=== PATIENT | male | born 1980 | race African-American/Black ===

== ENCOUNTER 2018-12-17 02:27 | Emergency (ER) | payer MEDICAID ==
[~2018-12-17] VITALS: Ht 190.5 cm; Wt 136.0 kg
[~2018-12-17 02:27] MED LIST: HYDR-3511
[2018-12-17] MEDS ORDERED: TETANUS, DIPHTHERIA, PERTUSSIS VAC/PF 0.5ML (>7YR OLD) IM ONE (04:15)
[2018-12-17 04:28] VITALS: BP 164/100
== END 2018-12-17 04:36 | disposition home or self-care (01) ==
LOC: ER 02:27
DX: S90.852A Superficial foreign body, left foot, initial encounter (principal); I10 Essential (primary) hypertension; W45.0XXA Nail entering through skin, initial encounter; Y93.89 Activity, other specified; Y92.89 Other specified places as the place of occurrence of the external cause; Y99.8 Other external cause status; Z88.0 Allergy status to penicillin; Z88.1 Allergy status to other antibiotic agents
CPT/HCPCS: 73620; 90471; 90715; 99284; Z7610; 99283

== ENCOUNTER 2019-03-24 20:07 | Emergency (ER) | payer MEDICAID ==
[~2019-03-24] VITALS: Ht 188 cm; Wt 132.3 kg
[~2019-03-24 20:07] MED LIST changes: -HYDR-3511; +HYDR-3512
[2019-03-24] MEDS ORDERED: SODIUM CHLORIDE 0.9% 1,000 ML IV ONE (23:53)
[2019-03-25 00:11] LABS: BASOPHILS % 0.8 % (0.0-2.0); EOSINOPHILS % 0.9 % (0.0-5.0); HEMATOCRIT. 42.7 % (42.0-52.0); HEMOGLOBIN. 14.1 g/dL (14.0-18.0); LYMPHOCYTES % 21.4 % (20.0-50.0); MEAN CORPUSCULAR HEMOGLOBIN 30.2 pg (28.0-32.0); MEAN CORPUSCULAR VOLUME 91.3 fL (80.0-94.0); MEAN PLATELET VOLUME 8.9 fl (7.4-10.4); MONOCYTES % 10.6 % (2.0-8.0); NEUTROPHILS % 66.3 % (40.0-76.0); PLATELET 236 x1000/uL (130-400); RED BLOOD CELL COUNT 4.68 mill/uL (4.7-6.1); RED CELL DISTRIBUTION WIDTH 12.9 % (11.6-14.6)
[2019-03-25 00:16] LABS: CHLORIDE 108 mEq/L (98-107)
[2019-03-25 00:17] LABS: PROTHROMBIN TIME 10.5 sec (9.6-11.0)
[2019-03-25] MEDS ORDERED: IOHEXOL-300 100 ML BOTTLE ONE (03:31)
[2019-03-25 04:53] VITALS: BP 147/83
== END 2019-03-25 04:53 | disposition home or self-care (01) ==
LOC: ER 20:07
DX: K62.89 Other specified diseases of anus and rectum (principal); R10.9 Unspecified abdominal pain; I10 Essential (primary) hypertension; Z88.0 Allergy status to penicillin; Z88.1 Allergy status to other antibiotic agents; Z98.890 Other specified postprocedural states
CPT/HCPCS: 36415; 74177; 80053; 83605; 83690; 85025; 85610; 99284; J7030; Q9967; Z7610

== ENCOUNTER 2022-05-05 16:18 | Emergency (ER) | payer MEDICARE, MEDICAID ==
[~2022-05-05] VITALS: Ht 182.9 cm; Wt 115.0 kg
[2022-05-05] MEDS ORDERED: IBUP-2030 MT (18:07)
[2022-05-05] MEDS ORDERED: HYDR-4001 MT (18:07)
[2022-05-05] MEDS ORDERED: HYDROCODONE/ACETAMINOPHEN 5/325MG TABLET PO ONE (18:15)
[2022-05-05 18:29] VITALS: BP 159/108
== END 2022-05-05 20:07 | disposition home or self-care (01) ==
LOC: ER 16:18
DX: S86.012A Strain of left Achilles tendon, initial encounter (principal); I10 Essential (primary) hypertension; Y93.67 Activity, basketball; Y92.310 Basketball court as the place of occurrence of the external cause
CPT/HCPCS: 29505; 99283

== ENCOUNTER → 2022-05-15 | Outpatient (CLI) | payer MEDICARE, MEDICAID ==
[~2022-05-15] MED LIST changes: +HYDR-4001 MT; +IBUP-2030 MT
== END | disposition home or self-care (01) ==
LOC: MRI 09:31
PROVIDERS: ATTEND Student in an Organized Health Care Education/Training Program
DX: S86.012A Strain of left Achilles tendon, initial encounter (principal); R60.0 Localized edema; X58.XXXA Exposure to other specified factors, initial encounter; Y93.89 Activity, other specified; Y92.89 Other specified places as the place of occurrence of the external cause; Y99.8 Other external cause status
CPT/HCPCS: 73610; 73630; 73718